=== PATIENT | female | born 1945 | race Caucasian/White ===

== ENCOUNTER → 2016-12-07 | Outpatient (CLI) | payer MEDICARE, BC ==
[~2016-12-07] MED LIST: FLONASE 50 MCG/16 GM NOSE; IBUPROFEN800 MG PO; PRILOSEC20 MG PO; ZYRTEC10 M3 PO
== END | disposition disaster alternative care site (69) ==
LOC: GBCOE 12-05 12:30
DX: Z13.820 Encounter for screening for osteoporosis (principal); M85.89 Other specified disorders of bone density and structure, multiple sites; Z78.0 Asymptomatic menopausal state